=== PATIENT | male | born 1990 | race American Indian/Alaskan Native ===

== ENCOUNTER 2024-02-08 18:23 | Emergency (ER) | payer MEDICAID ==
[~2024-02-08] VITALS: Ht 185.4 cm; Wt 92.4 kg
[2024-02-08] MEDS ORDERED: CYCL-1 PO (19:45)
[2024-02-08] MEDS: HYDROcodone/acetaminophen 5mg/325mg tablet PO ONE (20:25)
[2024-02-08] MEDS: cyclobenzaprine 10mg tablet PO ONE (20:25)
[2024-02-08 20:26] VITALS: BP 122/70; PULSE 68; RESP 14; TEMP 97.8; O2SAT 99
== END 2024-02-08 20:27 | disposition home or self-care (01) ==
LOC: ER 18:24
DX: S01.01XA Laceration without foreign body of scalp, initial encounter (principal); V89.9XXA Person injured in unspecified vehicle accident, initial encounter; Y93.89 Activity, other specified; Y92.89 Other specified places as the place of occurrence of the external cause; Y99.8 Other external cause status
CPT/HCPCS: 70450; 99284